=== PATIENT | female | born 1970 | race Caucasian/White ===

== ENCOUNTER 2025-05-12 08:55 | Observation (INO) ==
--- NOTE | 2025-04-15 16:42 | PAT Medication Instructions ---
Medication Instructions Date of Service April 15, 2025 Home Medications atorvastatin 40 mg tablet 40 mg PO QAM loratadine 10 mg capsule (Claritin Liqui-Gel) 10 mg PO QAM [place] Circulation 2 tab PO BID Multi Probiotic 4 Billion 1 tab PO BID Provitalize 2 cap PO QAM Sciatiease 2 cap PO BID Semaglutide Compound 100 mg subcut Q7D Spoiled Child Es Liquid Collag 1 dose PO QAM apple cider vinegar 250 mg chewable tablet 500 mg PO QAM budesonide-formoterol HFA 80 mcg-4.5 mcg/actuation aerosol inhaler (Breyna) 2 puff inhalation QAM cholecalciferol (vitamin D3) 125 mcg (5,000 unit) tablet (Vitamin D3) 125 mcg PO QPM coQ10 (ubiquinol) 100 mg capsule (Qunol Jonnathan CoQ10) 100 mg PO HS estradiol 0.025 mg/24 hr weekly transdermal patch 1 patch topical Q7D lisinopril 40 mg tablet 40 mg PO QAM norethindrone acetate 5 mg tablet 5 mg PO UD phenazopyridine 95 mg tablet (Azo Urinary Pain Relief) 95 mg PO BID psyllium husk 0.4 gram capsule (Metamucil) 0.4 g PO DAILY STOP 7 days before surgery Semaglutide Compound 100 mg subcut Q7D ASK your prescriber and surgeon estradiol 0.025 mg/24 hr weekly transdermal patch 1 patch topical Q7D norethindrone acetate 5 mg tablet 5 mg PO UD STOP taking 2 weeks before surgery (or as soon as possible if surgery is within 2 weeks) [place] Circulation 2 tab PO BID Provitalize 2 cap PO QAM Sciatiease 2 cap PO BID Spoiled Child Es Liquid Collag 1 dose PO QAM apple cider vinegar 250 mg chewable tablet 500 mg PO QAM coQ10 (ubiquinol) 100 mg capsule (Qunol Jonnathan CoQ10) 100 mg PO HS DO NOT take the morning of surgery loratadine 10 mg capsule (Claritin Liqui-Gel) 10 mg PO QAM Multi Probiotic 4 Billion 1 tab PO BID lisinopril 40 mg tablet 40 mg PO QAM phenazopyridine 95 mg tablet (Azo Urinary Pain Relief) 95 mg PO BID psyllium husk 0.4 gram capsule (Metamucil) 0.4 g PO DAILY Take morning of surgery With a small sip of water, OTHERWISE NOTHING TO EAT OR DRINK AFTER MIDNIGHT: atorvastatin 40 mg tablet 40 mg PO QAM budesonide-formoterol HFA 80 mcg-4.5 mcg/actuation aerosol inhaler (Breyna) 2 puff inhalation QAM Take evening before surgery Multi Probiotic 4 Billion 1 tab PO BID cholecalciferol (vitamin D3) 125 mcg (5,000 unit) tablet (Vitamin D3) 125 mcg PO QPM phenazopyridine 95 mg tablet (Azo Urinary Pain Relief) 95 mg PO BID Other Notes If you have any questions please call us at [phone] or [phone] or [phone] or [phone]
--- NOTE | 2025-04-20 15:17 | Anesthesiology Consultation ---
Date of Service April 20, 2025 Assessment & Plan (1) Encounter for pre-operative examination: - Infectious disease screening: Per assessment on 04/20/25- No known recent infectious disease contacts or current infectious disease symptoms. - Outpatient joint assessment: Pt currently scheduled for inpatient pathway. If surgeon requests review for outpatient joint pathway, patient is not a recommended candidate for outpatient joint program from anesthesia standpoint based on available information. - GLP-1 medication instructions: Patient informed by PAT to stop 7 days prior to surgery- voiced understanding. - PCP visit 11/27/24: "Reviewed CBC, BMP, PT(INR), EKG, CXR done for pre-op. All satisfactory.. At this time there are no contraindications to surgery." - S/P Left ROCÍO 12/03/24: * SAB at L3-4, 4 attempts * Patient states that she developed severe headache occurring 1 day after surgery and persistent x 4 days; also noted to have elevated BP. Was evaluated at [facility] ER 12/07/24. Per ER note, "She indicates that her headache started on , 12/04/2024, the day after she had a total left hip replacement. Headache pain is at a "15/10 ". No relief of symptoms to date. She denies fevers, chills, weakness, skin infection or pain, falls, injury, med changes. No vision changes, SOB, chest pain, abd pain, nausea, vomiting. She does endorse photophobia and phonophobia since BANUELOS occurred on . She was taking Tylenol/Advil w/ no relief.. Based on my history, physical exam, and evaluation, the differential includes, but is not limited, to the following diagnoses: migraine headache, tension headache, post surg anesthesia headache, hypertension.. BP elevated en route to ED and 175/86 at ED upon arrival. BP decreased throughout ED visit. Pt given IV fluids, compazine, toradol, benadryl, magnesium. Pt complained up discomfort and anxiety after meds. Likelihood of compazine causing s/s and discussed with pt. Agreed to treat with ativan. Given ativan and relief of s/s. After meds and fluids pain down to 3/10 and much relief. Pt feeling better and agreeable for discharge. Advised adequate oral hydration, alternating 1000 mg Tylenol/600 mg ibuprofen q3-4 hours as needed, and close f/u with PCP." Chart Review Chart Review: Acceptable Risk for Surgery and Patient seen in Pre Admission Testing Teaching & Discussion Pre-Anesthesia Teaching/Discussion Notes: Instructed NPO after midnight before surgery,except medications with 15 cc of water. Medication instructions provided according to the PAT guidelines. History Surgery Operation Date: 05/12/25 12:30 Proposed Procedures p Right Total Hip Arthroplasty - Helio Villalpando MD Height/Weight Height: 5 ft 3 in Weight: 118.8 kg Allergies Allergy/AdvReac Type Severity Reaction Status Date / Time dog dander Allergy Unknown Verified 04/09/25 13:19 grass pollen Allergy Unknown Verified 04/09/25 13:19 mold Allergy Unknown Verified 04/09/25 13:19 Gadolinium-Containing Allergy Difficulty Verified 04/09/25 13:19 Contrast Medi Breathing Iodinated Contrast Media Allergy throat Verified 04/09/25 13:19 swelling/closing Medications Home Medications Medication Instructions Recorded Confirmed Last Taken atorvastatin 40 mg tablet 40 mg PO QAM 06/03/19 04/09/25 12/03/24 04:00 loratadine 10 mg capsule (Claritin 10 mg PO QAM 06/03/19 04/09/25 12/02/24 07:00 Liqui-Gel) [place] Circulation 2 tab PO BID 10/28/24 04/09/25 1 Week Ago ~11/26/24 Multi Probiotic 4 Billion 1 tab PO BID 10/28/24 04/09/25 1 Week Ago ~11/26/24 Provitalize 2 cap PO QAM 10/28/24 04/09/25 1 Week Ago ~11/26/24 Sciatiease 2 cap PO BID 10/28/24 04/09/25 2 Weeks Ago ~11/19/24 Semaglutide Compound 100 mg subcut Q7D 10/28/24 04/09/25 11/23/24 Spoiled Child Es Liquid Collag 1 dose PO QAM 10/28/24 04/09/25 2 Weeks Ago ~11/19/24 apple cider vinegar 250 mg 500 mg PO QAM 10/28/24 04/09/25 1 Week Ago chewable tablet ~11/26/24 budesonide-formoterol HFA 80 2 puff inhalation QAM 10/28/24 04/09/25 12/03/24 04:00 mcg-4.5 mcg/actuation aerosol inhaler (Breyna) cholecalciferol (vitamin D3) 125 125 mcg PO QPM 10/28/24 04/09/25 12/02/24 18:00 mcg (5,000 unit) tablet (Vitamin D3) coQ10 (ubiquinol) 100 mg capsule 100 mg PO HS 10/28/24 04/09/25 1 Week Ago (Qunol Jonnathan CoQ10) ~11/26/24 estradiol 0.025 mg/24 hr weekly 1 patch topical Q7D 10/28/24 04/09/25 1 Week Ago transdermal patch ~11/26/24 lisinopril 40 mg tablet 40 mg PO QAM 10/28/24 04/09/25 12/02/24 07:00 norethindrone acetate 5 mg tablet 5 mg PO UD 10/28/24 04/09/25 1 Month Ago ~11/02/24 phenazopyridine 95 mg tablet (Azo 95 mg PO BID 10/28/24 04/09/25 12/02/24 18:00 Urinary Pain Relief) psyllium husk 0.4 gram capsule 0.4 g PO DAILY 10/28/24 04/09/25 1 Week Ago (Metamucil) ~11/26/24 Past Medical History Medical History (Updated 04/20/25 @ 16:23 by Odalys Wall) Anxiety and depression Hx Asthma daily inh History of COVID-19 Multiple, most recent 2022, no residual symptoms History of hypertension History of hypothyroidism No current meds Hx of hyperlipidemia Lumbar spondylosis Hx Morbid obesity Taking weekly Semaglutide compound for weight loss Sleep apnea Unable to tolerate device Stroke-like symptoms Hx 05/2024, Stroke-like symptoms- staring, nausea, "feeling as if her head was floating as her body stayed put.." Patient was seen by tele stroke due to high NIH score, decision made to give her TPA that she tolerated well. Admitted to ICU. CT unremarkable. "Neurology has cleared patient for discharged, her BP is not well controlled so I adjusted lisinopril dose for her.. 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 Was evaluated at [facility] ER 12/07/24. Per ER note, "She indicates that her headache started on , 12/04/2024, the day after she had a total left hip replacement. Headache pain is at a "15/10 ". No relief of symptoms to date. She denies fevers, chills, weakness, skin infection or pain, falls, injury, med changes. No vision changes, SOB, chest pain, abd pain, nausea, vomiting. She does endorse photophobia and phonophobia since BAUNELOS occurred on . She was taking Tylenol/Advil w/ no relief.. Based on my history, physical exam, and evaluation, the differential includes, but is not limited, to the following diagnoses: migraine headache, tension headache, post surg anesthesia headache, hypertension.. BP elevated en route to ED and 175/86 at ED upon arrival. BP decreased throughout ED visit. Pt given IV fluids, compazine, toradol, benadryl, magnesium. Pt complained up discomfort and anxiety after meds. Likelihood of compazine causing s/s and discussed with pt. Agreed to treat with ativan. Given ativan and relief of s/s. After meds and fluids pain down to 3/10 and much relief. Pt feeling better and agreeable for discharge. Advised adequate oral hydration, alternating 1000 mg Tylenol/600 mg ibuprofen q3-4 hours as needed, and close f/u with PCP." History of PONV No Hx of PONV and Hx of Motion Sickness (Occasional) Social History Smoking Status: Current some day smoker Smoking cigarettes per day: Social smoker Do You Dip or Chew Tobacco: No Hx Alcohol Use: Yes Alcohol type: beer alcohol intake frequency: a few times a week Hx Substance Use: No substance use type: does not use Review of Systems Patient denies chest pain, shortness of breath, fever, chills, cough, wheezing, palpitations. Physical Exam Vital Signs BP 162/88 P 76 TEMP 98.1 SP02 98%RA RESP 16 Physical Full cervical extension range of motion. Full TMJ range of motion. TMD > 3.5 finger breaths Mallampati Score I Dentition: intact Lungs: clear throughout to auscultation Cardiac: regular rate and rhythm, no murmurs noted Spine: normal Carotid arteries: negative bruit Extremities: no LE edema Lab Results Anesthesia Preop Results Results Anesthesia Widget: WBC 6.33 K/ul (4.8-10.8) 04/20/25 Hgb 12.9 g/dl (12.0-16.0) 04/20/25 Hct 40.4 % (37.0-47.0) 04/20/25 Plt 261 K/uL (130-400) 04/20/25 Na 140 mmol/L (136-145) 04/20/25 K 3.9 mmol/L (3.5-5.1) 04/20/25 Cl 107 mmol/L (98-107) 04/20/25 CO2 27 mmol/L (21-32) 04/20/25 BUN 17 mg/dl (6-23) 04/20/25 Creat 0.75 mg/dl (0.6-1.2) 04/20/25 Glucose Level 92 mg/dl (70-99(Fasting)) 04/20/25 PT 10.2 Seconds (9.0-12.0) 04/20/25 PTT 26 Seconds (21-31) 04/20/25 INR 1.0 (0.9-1.1) 04/20/25 Blood Type O Positive 04/20/25 Antibody Screen NEGATIVE 04/20/25 Testing Electrocardiogram Date: 11/13/24 NSR at 71bpm. "Normal ECG" Chest X-Ray Date: 11/13/24 FINDINGS: Heart size and pulmonary vasculature are normal. Lungs are mildly hyperexpanded. No consolidation or pleural effusion. IMPRESSION: No acute findings.
--- NOTE | 2025-05-04 13:22 | History & Physical Report ---
Date of Service May 04, 2025 Assessment & Plan (1) Arthritis of right hip: 54-year-old female now 5 months out from left hip replacement with right hip pain consistent with progressive right hip arthritis. She was hoping to wait a year but feels like she cannot do that and would like to have her right hip fixed. Very happy with the left side. Plan: We are going to take her to the operating room do a right total hip placement but the risks met this procedure were explained. Informed consent is obtained. Will use a Prevena VAC for wound care. She will stay in the hospital overnight. Will use aspirin for DVT prophylaxis. (2) History of total left hip arthroplasty: (3) Hypertension: (4) Hyperlipidemia: (5) Lumbar spondylosis: History of Present Illness Chief Complaint: . Right hip pain. Primary Care Provider: Sola Glaser MD . The patient is a 54-year-old female now 5 months out from left hip replacement. She done well from that side very happy. She become more debilitated by her right hip pain. Initially hoping to hold off for a year but does not feel like she can do that. Describes groin pain thigh pain. She said will continue using a cane to get around as a result. Allergies Allergy/AdvReac Type Severity Reaction Status Date / Time dog dander Allergy Unknown Verified 04/09/25 13:19 grass pollen Allergy Unknown Verified 04/09/25 13:19 mold Allergy Unknown Verified 04/09/25 13:19 Gadolinium-Containing Allergy Difficulty Verified 04/09/25 13:19 Contrast Medi Breathing Iodinated Contrast Media Allergy throat Verified 04/09/25 13:19 swelling/closing Home Medications Medication Instructions Recorded Confirmed Type atorvastatin 40 mg tablet 40 mg PO QAM 06/03/19 04/09/25 History loratadine 10 mg capsule (Claritin 10 mg PO QAM 06/03/19 04/09/25 History Liqui-Gel) [place] Circulation 2 tab PO BID 10/28/24 04/09/25 History Multi Probiotic 4 Billion 1 tab PO BID 10/28/24 04/09/25 History Provitalize 2 cap PO QAM 10/28/24 04/09/25 History Sciatiease 2 cap PO BID 10/28/24 04/09/25 History Semaglutide Compound 100 mg subcut Q7D 10/28/24 04/09/25 History Spoiled Child Es Liquid Collag 1 dose PO QAM 10/28/24 04/09/25 History apple cider vinegar 250 mg 500 mg PO QAM 10/28/24 04/09/25 History chewable tablet budesonide-formoterol HFA 80 2 puff inhalation QAM 10/28/24 04/09/25 History mcg-4.5 mcg/actuation aerosol inhaler (Breyna) cholecalciferol (vitamin D3) 125 125 mcg PO QPM 10/28/24 04/09/25 History mcg (5,000 unit) tablet (Vitamin D3) coQ10 (ubiquinol) 100 mg capsule 100 mg PO HS 10/28/24 04/09/25 History (Qunol Jonnathan CoQ10) estradiol 0.025 mg/24 hr weekly 1 patch topical Q7D 10/28/24 04/09/25 History transdermal patch lisinopril 40 mg tablet 40 mg PO QAM 10/28/24 04/09/25 History norethindrone acetate 5 mg tablet 5 mg PO UD 10/28/24 04/09/25 History phenazopyridine 95 mg tablet (Azo 95 mg PO BID 10/28/24 04/09/25 History Urinary Pain Relief) psyllium husk 0.4 gram capsule 0.4 g PO DAILY 10/28/24 04/09/25 History (Metamucil) Past Med/Surg History Problem List (Updated 05/04/25 @ 13:21 by Helio Villalpando MD) Arthritis of right hip Encounter for pre-operative examination Lumbar spondylosis Arthritis of both hips Hypertension Hyperlipidemia Asthma Medical History Morbid obesity Taking weekly Semaglutide compound for weight loss History of hypothyroidism No current meds Anxiety and depression Hx Stroke-like symptoms Hx 05/2024, Stroke-like symptoms- staring, nausea, "feeling as if her head was floating as her body stayed put.." Patient was seen by tele stroke due to high NIH score, decision made to give her TPA that she tolerated well. Admitted to ICU. CT unremarkable. "Neurology has cleared patient for discharged, her BP is not well controlled so I adjusted lisinopril dose for her.. 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) S/P tonsillectomy S/P tubal ligation Family History Father Hypertension Heart disease Grandmother (Maternal) Thyroid cancer Mother Hypertension Social History Smoking Status: Current some day smoker Tobacco Type: Cigarettes Cigarettes Per Day: Social smoker; Second Hand Exposure: No; Do You Dip or Chew Tobacco: No; Hx Alcohol Use: Yes Alcohol type: beer Hx Substance Use: No Preferred Language: Setswana Communication Ability: Effective 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 Physical Exam . Physical examination reveals a pleasant middle-age female who looks in pretty good health. Examination of the right hip reveal patient ambulates with use of a cane. She got a large soft tissue envelope. She has very limited motion with internal rotation in neutral. This does recreate her pain. Negative straight leg raise. She is neurologically intact. Leg lengths appear pretty equal. Examination left hip reveals a large soft tissue envelope. She got a well- healed incision. Leg lengths are equal. No pain with hip motion. Constitutional WD/WN, vitals as above Neck trachea midline, no thyromegaly Respiratory normal respiratory effort, lungs clear to auscultation Cardiovascular RRR, no murmur, no edema Gastrointestinal (Abdomen) normal bowel sounds, soft, nontender, no hepatosplenomegaly Results & Data Results & Data Laboratory Results . Diagnostic Findings . X-rays of the right hip were reviewed. Shows advanced right hip arthritis. She got complete loss of superior joint space. The left hip replaced looks to be good position without problems. PG Care Time/CCT Total # of Minutes Spent Total Time Spent with Patient: Total time spent is greater than 50% in coordination of care (as documented) at patient's floor/unit and/or counseling patient: Coding Level of Care Code None Diagnoses Arthritis of right hip M16.11 History of total left hip arthroplasty Z96.642 Hypertension I10 Hyperlipidemia E78.5 Lumbar spondylosis M47.816
[~2025-05-12 08:55] MED LIST: BUPIVACAINE 0.5 % 5 MG/1 ML PF 10ML VIAL ONE
--- NOTE | 2025-05-12 08:58 | History & Physical Bridge Note ---
Date of Service May 12, 2025 History & Physical Bridge Note I have examined the patient, reviewed the History & Physical and in the interval since the performance of the History & Physical I have noted the following changes of clinical significance: no changes noted
[2025-05-12] MEDS ORDERED: LIDOCAINE 2% 2 ML VIAL/AMP(20MG/ML) INFIL ONE (09:30)
[2025-05-12] MEDS ORDERED: PROPOFOL IV EMULSION 10 MG/ML 100 ML VIAL IV ONE (09:30)
[2025-05-12] MEDS ORDERED: ONDANSETRON INJ 2 MG/ML 2 ML VIAL ONE (09:30)
[2025-05-12] MEDS ORDERED: MIDAZOLAM HCL 1 MG/ML 2ML VIAL ONE (09:30)
[2025-05-12] MEDS: CeleBREX 200 MG CAP PO SCH (09:48)
[2025-05-12] MEDS: ACETAMINOPHEN 500 MG TAB PO SCH ×2 (09:48→15:45)
[2025-05-12] MEDS: METOCLOPRAMIDE HCL 10 MG TABLET PO SCH (09:48)
[2025-05-12] MEDS: FAMOTIDINE 20 MG TAB PO SCH (09:49)
[2025-05-12] MEDS: dexAMETHasone**PF** 10 MG/ML VIAL IV SCH (09:49)
[2025-05-12] MEDS: LR 500ML BOLUS, THEN 15ML/HR IV SCH (09:50)
[2025-05-12] MEDS: LR 60ML/HR IV SCH (09:50)
[2025-05-12] MEDS ORDERED: PROPOFOL IV EMULSION 10 MG/ML 20 ML VIAL IV ONE (10:43)
[2025-05-12] MEDS ORDERED: ROCURONIUM BROMIDE 10 MG/ML 5 ML VIAL IV ONE (10:43)
[2025-05-12] MEDS ORDERED: PROMETHAZINE HCL 6.25 MG in SODIUM CHLORIDE 0.9% 50 ML IV PRN (10:54)
[2025-05-12] MEDS ORDERED: FLUMAZENIL 0.1 MG/1 ML 10 ML VIAL IV PRN (10:54)
[2025-05-12] MEDS ORDERED: NALOXONE HCL 0.4 MG/1 ML VIAL/CARP IV PRN ×2 (10:54→14:55)
[2025-05-12] MEDS ORDERED: ATROPINE SULFATE 0.1 MG/ML 10ML SYR IV PRN (10:54)
[2025-05-12] MEDS ORDERED: ONDANSETRON INJ 2 MG/ML 2 ML VIAL IV PRN ×2 (10:54→14:55)
[2025-05-12] MEDS ORDERED: HYDROmorphone INJ 1 MG/ML SYRINGE IV PRN (10:54)
[2025-05-12] MEDS ORDERED: LABETALOL HCL IV 5 MG/ML 20ML IV PRN (10:54)
[2025-05-12] MEDS: TRANEXAMIC ACID 1,000 MG **IV Pre-op IV SCH (11:31)
[2025-05-12] MEDS ORDERED: ceFAZolin 330 MG/ML 1 GM VIAL ONE (11:42)
[2025-05-12] MEDS ORDERED: SUGAMMADEX SODIUM 200 MG/2 ML VIAL IV ONE (12:02)
[2025-05-12] MEDS ORDERED: HYDROmorphone INJ 2 MG/ML SYR/VIAL ONE (12:17)
[2025-05-12] MEDS: BUPIVACAINE/EPINEPHRINE 0.5% MPF 1:200,000 30 ML VIAL ONE (12:44)
--- NOTE | 2025-05-12 13:52 | Operative Report ---
PG Post Operative Report Pre & Post Diagnosis Operation Date: 05/12/25 11:00 Pre-Op Diagnosis: Right Hip Osteoarthritis Post-Op Diagnosis: Right Hip Osteoarthritis I identified the patient and participated in the time-out.: Yes Procedure Operation Date: 05/12/25 11:00 Actual Procedures p Right Total Hip Arthroplasty(Right) - Helio Villalpando MD Surgeon Helio Villalpando MD [employer] Joe Lovell PA-C Estimated Blood Loss 200 Findings Consistent with Post-Op Diagnosis Specimens Right femoral head sent for pathology Anesthesia Type General Complications none Disposition Accompanied Patient To Recovery: No Indications The patient is a 54-year-old female has had a several year history of increasing bilateral pain discomfort has gotten worse over time. She underwent a left hip replacement about 5 months ago and is doing remarkably well. She continues to be limited by progressive increasing right hip pain discomfort. X-rays show advanced hip arthritis. She elected proceed with total hip arthroplasty. Description of Procedure Operative implants consist of: 1 Biomet G7 size 50 mm acetabular shell. 2. 6.5 cancellous acetabular screws 135 mm in length and 1 of 25 mm length. 3. Bunker hole camera storage clerk. 4. Highly cross-linked polyethylene liner with a 50 mm outer diameter and a 36 mm inner diameter. 5. DePuy Karaya size 11 KLA femoral stem. 6. +5/36 mm ceramic articular ball. The patient was taken to the op room, identified, placed on the operative table in the supine position. All contact areas were appropriately padded. IV antibiotics were provided by anesthesia team. A general anesthetic was implemented due to her history of spine surgery. A Haro catheter was placed in sterile fashion. The patient then placed in the left lateral decubitus position. An axillary roll was placed with a stool Birkett position was used for positioning. The right hip and leg were then prepped and draped in usual sterile fashion. A posterior lateral approach of the right hip was then performed through a curvilinear incision centered over the greater trochanter. Sharp dissection Through subcutaneous tissue down to level the IT band gluteal fascia. She had a very thick soft tissue envelope. The IT band gluteal fascia were then incised longitudinally in line with skin incision. The underlying greater bursa was excised. The piriformis and external rotators along with the posterior joint capsule were then released to the posterior aspect of the hip as a single layer. Great care was taken throughout the procedure protect the sciatic nerve at all times. The hip was then internally rotated and dislocated. A femoral neck osteotomy cut was made with a Final Cut about 15 mm above the lesser trochanter. Femoral head was removed and sent for pathology. The femur was retracted anteriorly. Attention drawn to the acetabulum. The acetabular labrum was excised. The Pulvinal fat was excised. Sequential reaming the acetabular was then performed performed again with a size 43 and progressing up to 49. We reamed a little bit with the 50 reamer and then placed a 15 mm Biomet acetabular shell in about 4 degrees lateral opening and 20 degrees of anteversion. It was fixed with two 6.5 screws. A trial liner was placed. Attention drawn the femur. The proximal femur was entered with a cookie cutter followed by canal finder. I then broached again the size 8 and progressing up to 11. Get excellent fit 11. We then trialed the hip and the +5 articular ball recreated soft tissue tension appropriately, was fully stable, and recreated equal leg lengths. We elected to place these implants. All trial implants were removed. An apex hole camera storage clerk was placed. Highly cross-linked polyethylene liner was placed. A size 11 KLA femoral stem was impacted in position. +5/36 mm ceramic articular ball was placed. Hip was located once again found to be stable. Attention then drawn to the closure. The hip was irrigated extensively. I did inject locally with 60 cc of half percent Marcaine with epinephrine. The posterior capsule and external rotators were then repaired to drill holes in the posterior trochanter with #2 Tycron suture. The IT band gluteal fascia then closed with #1 PDS suture in a running fashion for the subcutaneous tissues then closed with 3 layers with a deep layer #2 Vicryl sutures the more superficial layer with #1 Vicryl and the subcu tissues with 2-0 Dexon suture in a buried interrupted fashion. Skin was then closed with skin giselle. A Prevena VAC dressing was applied. The patient was then brought out of general esthesia and transferred to the recovery in stable condition. Patient tolerated the procedure well and there were no complications. Joe Lovell, my physician business support assistant, was present for the entire procedure. His assistance was essential and required for appropriate patient positioning, prepping and draping, surgical exposure, performing the technical details of the operation, placement the implants, closure of the wound, and placement of the sterile bandage. I attest to the content of the Intraoperative Record and any orders documented therein. Any exceptions are noted below.
--- NOTE | 2025-05-12 14:12 | XRay Report ---
XR hip 1V RT w pelvis CLINICAL HISTORY: IN PACU - Post Surgical COMPARISON: 12/03/2024 FINDINGS: Bilateral hip prostheses show no hardware complication. There is expected soft tissue gas on the right. Skin giselle are present. IMPRESSION: Unremarkable postoperative exam. ACT 112: Negative or not required by law. Electronically signed by: Gibran Goldman M.D. 05/12/2025 2:11 PM
[2025-05-12] MEDS ORDERED: METOCLOPRAMIDE HCL INJ 5 MG/ML 2 ML VIAL IV PRN (14:55)
[2025-05-12] MEDS ORDERED: NORETHINDRONE 5 MG TAB PO SCH (14:55)
[2025-05-12] MEDS ORDERED: ALUMINUM/MAGNESIUM SUSP 30 ML UDC PO PRN (14:55)
[2025-05-12] MEDS ORDERED: diphenhydrAMINE Capsule 25 MG CAP PO PRN (14:55)
[2025-05-12] MEDS ORDERED: ACETAMINOPHEN 500 MG TAB PO SCH (14:55)
[2025-05-12] MEDS ORDERED: MAGNESIUM HYDROXIDE SUSP 30 ML UDC PO PRN (14:55)
--- NOTE | 2025-05-12 15:00 | Anesthesiology Progress Note ---
Date of Service May 12, 2025 Anesthesia Post Procedure Vital Signs Vital Signs: Temp Pulse Pulse Resp BP Pulse Ox O2 Del Method 05/12/25 14:45 78 12 125/73 93 Room Air 05/12/25 14:30 71 15 138/84 93 Room Air 05/12/25 14:20 36.9 C 78 13 145/80 H 97 Room Air 05/12/25 14:10 75 15 144/80 H 94 Room Air 05/12/25 14:00 73 12 149/66 H 100 Room Air 05/12/25 13:50 73 15 170/77 H 100 Oxymask 05/12/25 13:42 36 C L 84 16 155/83 H 99 Oxymask 05/12/25 09:23 36.6 C 75 20 179/93 H 100 Room Air O2 Flow Rate 05/12/25 14:45 05/12/25 14:30 05/12/25 14:20 05/12/25 14:10 05/12/25 14:00 05/12/25 13:50 4 05/12/25 13:42 7 05/12/25 09:23 Pain Intensity Right Hip: Pain Intensity: 5 Transfer of Care Handoff Completed per policy Notes Mental Status: alert / awake / arousable Patient Amnestic to Procedure: Yes Nausea / Vomiting: adequately controlled Pain: adequately controlled Airway Patency, RR, SpO2: stable & adequate BP & HR: stable & adequate Hydration State: stable & adequate Anesthetic Complications: no major complications apparent
[2025-05-12] MEDS: SODIUM CHLORIDE 0.9% 1,000 ML IV SCH (15:46)
[2025-05-12] MEDS: KETOROLAC 30 MG/ML VIAL IV SCH (15:46)
[2025-05-12] MEDS: HYDROmorphone INJ 0.5 MG/0.5 ML SYR IV PRN (16:38)
[2025-05-12] MEDS: ASCORBIC ACID 500 MG TAB PO SCH (18:39)
[2025-05-12] MEDS: TRANEXAMIC ACID / 0.7% NACL 1,000 MG/100 ML BAG IV SCH (19:51)
[2025-05-12] MEDS ORDERED: SENNA 8.6 MG TAB PO SCH (21:00)
[2025-05-12] MEDS: PHENAZOPYRIDINE HCL 100 MG TAB PO SCH (21:30)
[2025-05-12] MEDS: ASPIRIN 81 MG ECTAB PO SCH (21:30)
[2025-05-12] MEDS: CHOLECALCIFEROL 125 MCG (5,000 UNITS) TAB PO SCH (21:30)
[2025-05-12] MEDS: DOCUSATE SODIUM 100 MG CAP PO SCH (21:30)
[2025-05-12] MEDS: SENNA 8.6 MG TAB PO SCH (21:30)
[2025-05-13 03:37] VITALS: RESP 18
[2025-05-13 06:14] LABS: Hematocrit (blood only) 34.1 % (37.0-47.0); Hemoglobin 11.2 g/dL (12.0-16.0); Immature Granulocytes # (auto) 0.04 K/uL (0.01-0.20); Immature Granulocytes % (auto) 0.4 %; Mean Corpuscular Hemoglobin 30.4 pg (25.0-34.0); Mean Corpuscular Volume 92.7 fL (80.0-100.0); Platelet Count 266 K/uL (130-400); RDW Standard Deviation 47.1 fL (36.4-46.3); Red Blood Count 3.68 M/uL (4.20-5.40); White Blood Count 9.74 K/ul (4.8-10.8)
[2025-05-13 06:31] LABS: Anion Gap 9.0 (3-11); Blood Urea Nitrogen 16.0 mg/dl (6-23); Calcium 8.9 mg/dl (8.6-10.3); Carbon Dioxide 24.0 mmol/L (21-32); Chloride 106.0 mmol/L (98-107); Creatinine Clr Calc Pharmacy 98.3 ml/min; Glucose 102.0 mg/dl (70-99(Fasting)); Potassium 4.2 mmol/L (3.5-5.1); Sodium 139.0 mmol/L (136-145)
[2025-05-13 07:25] VITALS: BP 124/75; PULSE 78; TEMP 98.6; O2SAT 100
[2025-05-13] MEDS: dexAMETHasone 10 MG in SYRINGE 0 ML IV SCH (08:09)
[2025-05-13] MEDS: ATORVASTATIN 40 MG TAB PO SCH (08:10)
[2025-05-13] MEDS: LORATADINE 10 MG TAB PO SCH (08:10)
[2025-05-13] MEDS: MULTIVITAMIN TAB PO SCH (08:11)
[2025-05-13] MEDS: PSYLLIUM HUSK 4GM PACKET PO SCH (08:11)
[2025-05-13] MEDS: FLUTICASONE/VILANTEROL 100/25MCG 14 PUFFS/INHALER INH SCH (08:12)
--- NOTE | 2025-05-13 09:19 | Orthopedic Progress Note ---
Date of Service May 13, 2025 Assessment & Plan (1) S/P total right hip arthroplasty: * Continue Current Treatment * Disposition: home * Daily treatment: Physical Therapy/ Occupational Therapy per protocol * Weight bearing status: WBAT w/ hip precautions * Continue to monitor for ABLA * Pain control * Maintain Prevena dressing * DVT prophylaxis, ASA * Office/hospital f/u 2 weeks for progress check and staple/suture removal * Plan for discharge today pending PT/OT clearance Subjective .Active Problems: S/p right ROCÍO POD 1 54 y/o female s/p right ROCÍO. Doing well overall, pain managed and improved function. Denies fever/chills, chest pain/SOB, nausea/vomiting. Otherwise no complaints. Review of Systems All systems reviewed & are unremarkable except as noted in HPI & below. Physical Exam . * General: Alert and oriented, no acute distress * Constitutional: well-developed, well-nourished. * Respiratory: Normal respiratory effort, no distress * Gastrointestinal: No tenderness to palpation, no rigidity or guarding. * Skin: No rash or lesion. * Neurologic: Grossly normal * Musculoskeletal: Right hip surgical dressing CDI, Prevena dressing intact, not removed for exam. Otherwise no obvious deformity or overlying skin changes. Diffuse TTP proximal thigh and hip region. Otherwise no specific tenderness of distal thigh, lower leg, foot/ankle. AROM hip flexion intact. AROM foot/ankle intact. Sensation intact plantar/dorsal foot. Brisk capillary refill. Results & Data Results & Data Laboratory Results . Diagnostic Findings . Hip/Pelvis X-Ray 05/12/25 13:46 XR hip 1V RT w pelvis CLINICAL HISTORY: IN PACU - Post Surgical COMPARISON: 12/03/2024 FINDINGS: Bilateral hip prostheses show no hardware complication. There is expected soft tissue gas on the right. Skin giselle are present. IMPRESSION: Unremarkable postoperative exam. ACT 112: Negative or not required by law. Electronically signed by: Gibran Goldman M.D. 05/12/2025 2:11 PM PG Care Time/CCT Total # of Minutes Spent Total Time Spent with Patient: Total time spent is greater than 50% in coordination of care (as documented) at patient's floor/unit and/or counseling patient: Coding Level of Care Code 28400 Post Operative Follow-Up Diagnoses S/P total right hip arthroplasty Z96.641
== END 2025-05-13 11:23 | disposition home health service (06) ==
LOC: 3E 08:55 → ASU 08:55